=== PATIENT | male | born 1955 | race African-American/Black ===

== ENCOUNTER 2017-11-05 12:53 | Emergency (ER) | payer OTHER ==
[2017-11-05 13:00] VITALS: BP 131/74; BMI 27.5
--- NOTE | 2017-11-05 13:34 | DR.GENAD ---
HPI - PCP Primary Care Physician: none - Complaint/Symptoms Chief Complaint Doctors Comments: Patient presents with multiple complaints non specific, wants a general physical. Admits to having a private physician. He reports that he had coumadin for several years; not sure sure as to why. Chief Complaint:: spine problems, hurt all over, maybe blood clots, back hurts legs hurt - Source History Provided: Patient - Mode of Arrival Mode of Arrival: Ambulatory - Timing Onset of Chief Complaint: 07/21/00 PMH - PMH Past Medical History: Yes Past Medical History: Arthritis, Diabetes, Hypertension Past Medical History Comment: blood clots Past Surgical History: No - Family History History of Family Medical Conditions: No - Social History Does patient currently use any type of tobacco product: No Have you used tobacco products in the last 12 months: No Type of Tobacco Use: None Does any household member use tobacco: No Alcohol Use: None Do you use any recreational Drugs:: No Lives With: Family Lives Where: Home - infectious screening In the last 2 months have you had wt loss of >10#?: NO Have you had fever, night sweats or hemotysis?: No Have you traveled outside the country in the last 6 months?: No Isolation: Standard ROS - Review of Systems Eyes: No Symptoms Reported ENTM: No Symptoms Reported, Hearing Loss Respiratoy: No Symptoms Reported Cardiovascular: No Symptoms Reported Gastrointestinal/Abdominal: No Symptoms Reported Genitourinary: No Symptoms Reported Neurological: No Symptoms Reported Musculoskeletal: No Symptoms Reported Integumentary: No Symptoms Reported Hematologic/Lymphatic: No Symptoms Reported Endocrine: No Symptoms Reported Psychiatric: No Symptoms Reported All Other Systems: Reviewed and Negative PE - Vital Signs Vitals: Temperature 98 F Pulse Rate 90 Respiratory Rate 18 Blood Pressure 131/74 O2 Sat by Pulse Oximetry 100 - General Limitations: No Limitations General Appearance: Alert - Head Head Exam: Normal Inspection, Atraumatic - Eyes Eye exam: Normal Appearance, PERRL, EOMI - ENT ENT Exam: Normal Exam External Ear Exam: Normal External Inspection TM/Canal Exam: Bilateral Normal Nose Exam: Normal Nose Exam Mouth Exam: Normal Inspection Throat Exam: Normal Inspection - Neck Neck Exam: Normal Inspection - Chest Chest Inspection: Normal Inspection - Respiratory Respiratory Exam: Normal Lung Sounds Bilat Respiratory Exam: Bilateral Clear to Auscultation - Cardiovascular Cardiovascular Exam: Regular Rate, Normal Rhythm - Abdominal Exam Abdominal Exam: Normal Inspection Abdominal Tenderness: negative: RUQ, RLQ, LUQ, LLQ, Epigastrium, Suprapubic, Diffuse, Mild, Moderate, Severe, Other - Extremities Extremities Exam: Normal Inspection, Full ROM - Back Back Exam: Normal Inspection, Full ROM - Neurologic Neurological Exam: Alert, Oriented X3, CN II-XII Intact - Psychiatric Psychiatric Exam: Normal Affect - Skin Skin Exam: Warm, Dry, Intact Course - Reevaluation 1st: Unchanged ROR - Labs Reviewed Result Diagrams: 11/05/17 13:44 11/05/17 13:44 Laboratory: WBC 6.0 X10^3/uL (3.6-10.0) 11/05/17 13:44 RBC 5.70 X10^6/uL (4.7-6.0) 11/05/17 13:44 Hgb 14.6 g/dL (13.5-18.0) 11/05/17 13:44 Hct 43.9 % (42.0-54.0) 11/05/17 13:44 MCV 76.9 fL (80.0-100.0) L 11/05/17 13:44 MCH 25.7 pg (27.0-34.0) L 11/05/17 13:44 MCHC 33.4 g/dL (33.0-35.0) 11/05/17 13:44 RDW 14.6 % (11.6-16.5) 11/05/17 13:44 Plt Count 302 X10^3/uL (150.0-450.0) 11/05/17 13:44 Plt Count Comment Adequate (ADEQUATE) 11/05/17 13:44 MPV 7.1 fL (7.4-11.0) L 11/05/17 13:44 Neut % (Auto) 65.7 % (42.0-75.0) 11/05/17 13:44 Lymph % (Auto) 25.6 % (21.0-51.0) 11/05/17 13:44 [place] % (Auto) 6.4 % (0.0-13.0) 11/05/17 13:44 Eos % (Auto) 1.1 % (0.9-2.9) 11/05/17 13:44 Baso % (Auto) 1.2 % (0.2-1.0) H 11/05/17 13:44 Neut # (Auto) 4.0 x10^3/uL (2.2-4.8) 11/05/17 13:44 Lymph # (Auto) 1.5 X10^3/uL (1.3-2.9) 11/05/17 13:44 [place] # (Auto) 0.4 x10^3/uL (0.3-0.8) 11/05/17 13:44 Eos # (Auto) 0.1 x10^3/uL (0.0-0.2) 11/05/17 13:44 Baso # (Auto) 0.1 X10^3/uL (0.0-0.1) 11/05/17 13:44 Absolute Nucleated RBC 0.0 /100WBC 11/05/17 13:44 Plt Morphology Comment Normal (NORMAL) 11/05/17 13:44 RBC Morphology Normal (NORMAL) 11/05/17 13:44 INR Target Range - 11/05/17 13:44 INR 1.00 (0.8-1.3) 11/05/17 13:44 APTT 25.6 SECONDS (22.9-36.5) 11/05/17 13:44 PTT Comment - 11/05/17 13:44 Sodium 139 mmol/L (136-145) 11/05/17 13:44 Corrected Sodium 141 mmol/L (136-145) 11/05/17 13:44 Potassium 4.2 mmol/L (3.5-5.1) 11/05/17 13:44 Chloride 105 mmol/L (98-107) 11/05/17 13:44 Carbon Dioxide 25.5 mmol/L (21-32) 11/05/17 13:44 BUN 10 mg/dL (7-18) 11/05/17 13:44 Creatinine 0.85 mg/dL (0.70-1.30) 11/05/17 13:44 Est GFR (MDRD) Af Amer > 60 (>60) 11/05/17 13:44 Est GFR (MDRD) Non-Af > 60 (>60) 11/05/17 13:44 Glucose 184 mg/dL (65-99) H 11/05/17 13:44 Calcium 8.7 mg/dL (8.5-10.1) 11/05/17 13:44 Corrected Calcium TNP 11/05/17 13:44 Total Bilirubin 0.40 mg/dL (0.2-1.0) 11/05/17 13:44 AST 14 Units/L (15-37) L 11/05/17 13:44 ALT 22 Units/L (12-78) 11/05/17 13:44 Alkaline Phosphatase 87 Units/L (46-116) 11/05/17 13:44 Total Protein 7.6 g/dL (6.4-8.2) 11/05/17 13:44 Albumin 4.1 g/dL (3.4-5.0) 11/05/17 13:44 Globulin 3.5 g/dL (2.5-4.5) 11/05/17 13:44 Albumin/Globulin Ratio 1.2 Ratio (1.1-2.1) 11/05/17 13:44 - Diagnosis Discharge Problem: Elevated glucose level - Discharge Plan Condition: Stable - Follow ups/Referrals Follow ups/Referrals: NFD,None [Primary Care Provider] - 3 days - Instructions
[2017-11-05 13:53] LABS: BASOPHILS # (AUTO) 0.1 X10^3/uL (0.0-0.1); BASOPHILS % (AUTO) 1.2 % (0.2-1.0); EOSINOPHILS # (AUTO) 0.1 x10^3/uL (0.0-0.2); EOSINOPHILS % (AUTO) 1.1 % (0.9-2.9); HEMATOCRIT 43.9 % (42.0-54.0); HEMOGLOBIN 14.6 g/dL (13.5-18.0); LYMPHOCYTES # (AUTO) 1.5 X10^3/uL (1.3-2.9); LYMPHOCYTES % (AUTO) 25.6 % (21.0-51.0); MEAN CORPUSCULAR HEMOGLOBIN 25.7 pg (27.0-34.0); MEAN CORPUSCULAR HGB CONC 33.4 g/dL (33.0-35.0); MEAN CORPUSCULAR VOLUME 76.9 fL (80.0-100.0); MEAN PLATELET VOLUME 7.1 fL (7.4-11.0); MONOCYTES # (AUTO) 0.4 x10^3/uL (0.3-0.8); MONOCYTES % (AUTO) 6.4 % (0.0-13.0); NEUTROPHILS % (AUTO) 65.7 % (42.0-75.0); PLATELET COUNT 302 X10^3/uL (150.0-450.0); RED CELL DISTRIBUTION WIDTH 14.6 % (11.6-16.5)
[2017-11-05 14:05] LABS: ALANINE AMINOTRANSFERASE 22 Units/L (12-78); ALBUMIN 4.1 g/dL (3.4-5.0); ALKALINE PHOSPHATASE 87 Units/L (46-116); ASPARTATE AMINO TRANSFERASE 14 Units/L (15-37); BLOOD UREA NITROGEN 10 mg/dL (7-18); CALCIUM 8.7 mg/dL (8.5-10.1); CARBON DIOXIDE 25.5 mmol/L (21-32); CHLORIDE 105 mmol/L (98-107); COR NA(FOR HYPERGLY) 141 mmol/L (136-145); CREATININE 0.85 mg/dL (0.70-1.30); SODIUM 139 mmol/L (136-145); TOTAL PROTEIN 7.6 g/dL (6.4-8.2); eGFR BLACK RACES > 60 (>60); eGFR NON BLACK RACES > 60 (>60)
[2017-11-05 14:09] LABS: PLATELET MORPHOLOGY COMMENT NORMAL (NORMAL)
== END 2017-11-05 14:54 | disposition home or self-care (01) ==
LOC: ER 13:08
DX: R73.09 Other abnormal glucose (principal)
CPT/HCPCS: 36415; 80053; 85025; 85610; 85730; 99282